=== PATIENT | male | born 2000 | race Caucasian/White ===

== ENCOUNTER 2022-03-22 21:49 | Emergency (ER) | payer BC ==
[2022-03-22 21:56] VITALS: TEMP 99.5
[2022-03-22] MEDS ORDERED: SODIUM CHLORIDE 0.9% 1,000 ML IV STA (22:07)
[2022-03-22] MEDS ORDERED: MORPHINE SULFATE 4 MG/ML SYRINGE IV STA (22:07)
[2022-03-22] MEDS ORDERED: ONDANSETRON 4 MG/2 ML VIAL IVP STA (22:07)
--- NOTE | 2022-03-22 22:28 | ED ---
Abdominal Pain HPI - General Chief Complaint: Abdominal Pain Stated Complaint: Extreme abdominal pain Time Seen by Provider: 03/22/22 22:06 Source: patient, family, RN notes reviewed, old records reviewed Mode of arrival: ambulatory Limitations: no limitations - History of Present Illness Initial Comments: This is a 22-year-old male to the emergency department for evaluation patient coming in for severe no abdominal pain left-sided jaw pain left upper quadrant bowel pain back pain. The symptoms of been episodic for a few weeks. Patient denies any significant trauma no fevers did have a headache about 2 weeks ago with at all symptoms resolved. Patient is no medical history takes no medications no surgical history. Normal bowel movements and patient has a good appetite. Patient does admit to working out more than normal lately MD Complaint: abdominal pain Location: diffuse, epigastric, suprapubic Radiation: epigastric, suprapubic Migration to: epigastric, suprapubic Severity: moderate Severity scale (1-10): 4 Quality: stabbing, aching Consistency: constant Improves With: nothing Worsens With: nothing Context: recent injury (possible with trip to [place]) Associated Symptoms: nausea Treatments Prior to Arrival: NSAIDs, antacids, other - Related Data Home Medications Medication Instructions Recorded Confirmed Pantoprazole Sodium 40 mg PO DAILY 03/22/22 03/22/22 Allergies Allergy/AdvReac Type Severity Reaction Status Date / Time No Known Allergies Allergy Verified 03/22/22 23:30 Review of Systems ROS Statement: Those systems with pertinent positive or pertinent negative responses have been documented in the HPI. ROS Other: All systems not noted in ROS Statement are negative. Past Medical History Past Medical History: No Reported History History of Any Multi-Drug Resistant Organisms: None Reported Past Surgical History: No Surgical Hx Reported Past Psychological History: No Psychological Hx Reported Smoking Status: Never smoker Past Alcohol Use History: None Reported Past Drug Use History: None Reported General Exam Limitations: no limitations General appearance: alert, in no apparent distress Head exam: Present: atraumatic, normocephalic, normal inspection Eye exam: Present: normal appearance, PERRL, EOMI. Absent: scleral icterus, conjunctival injection, periorbital swelling ENT exam: Present: normal exam, mucous membranes moist Neck exam: Present: normal inspection. Absent: tenderness, meningismus, lymphadenopathy Respiratory exam: Present: normal lung sounds bilaterally. Absent: respiratory distress, wheezes, rales, rhonchi, stridor Cardiovascular Exam: Present: regular rate, normal rhythm, normal heart sounds. Absent: systolic murmur, diastolic murmur, rubs, gallop, clicks GI/Abdominal exam: Present: soft, normal bowel sounds. Absent: distended, tenderness, guarding, rebound, rigid Extremities exam: Present: normal inspection, full ROM, normal capillary refill. Absent: tenderness, pedal edema, joint swelling, calf tenderness Back exam: Present: normal inspection Neurological exam: Present: alert, oriented X3, CN II-XII intact Psychiatric exam: Present: normal affect, normal mood Skin exam: Present: warm, dry, intact, normal color. Absent: rash Course Vital Signs 03/22/22 03/22/22 21:52 22:43 Temperature 99.5 F Pulse Rate 99 100 Respiratory 22 16 Rate Blood Pressure 152/100 140/85 O2 Sat by Pulse 99 97 Oximetry - Reevaluation(s) Reevaluation #1: 03/23/22 00:00 medical record is reviewed Reevaluation #2: 03/23/22 00:00 Patient is no significant acute distress or pain Reevaluation #3: 03/23/22 00:00 Patient is a former results and questions answered - Consultations Consultation #1: Spoke with Dr. Page in for evaluation, will see patient in the office Medical Decision Making - Medical Decision Making 22 male to the emergency department for evaluation she does come in the ER for evaluation of abdominal pain. Left upper quadrant pain with some back pain. Patient informed of findings on computed tomography scan here in the emergency department and states that couple weeks ago he was at [place] he did have some back pain initially. Patient is in no acute distress currently and can follow-up on outpatient basis with general surgery in the morning - Lab Data Result diagrams: 03/22/22 22:30 03/22/22 22:30 Lab Results 03/22/22 03/22/22 03/22/22 Range/Units 22:30 22:30 22:30 WBC 11.5 H (3.8-10.6) k/uL RBC 4.37 (4.30-5.90) m/uL Hgb 12.8 L (13.0-17.5) gm/dL Hct 38.5 L (39.0-53.0) % MCV 88.2 (80.0-100.0) fL MCH 29.3 (25.0-35.0) pg MCHC 33.2 (31.0-37.0) g/dL RDW 13.4 (11.5-15.5) % Plt Count 165 (150-450) k/uL MPV 8.5 Neutrophils % (Manual) 11 % Band Neuts % (Manual) 1 % Lymphocytes % (Manual) 73 % Monocytes % (Manual) 15 % Neutrophils # (Manual) 1.30 (1.3-7.7) k/uL Lymphocytes # (Manual) 8.40 H (1.0-4.8) k/uL Monocytes # (Manual) 1.73 H (0-1.0) k/uL Nucleated RBCs 0 (0-0) /100 WBC Manual Slide Review Performed Reactive Lymphocytes Present RBC Morphology Normal PT 11.6 (9.0-12.0) sec INR 1.1 (<1.2) APTT 30.0 (22.0-30.0) sec Sodium 135 L (137-145) mmol/L Potassium 3.8 (3.5-5.1) mmol/L Chloride 102 (98-107) mmol/L Carbon Dioxide 26 (22-30) mmol/L Anion Gap 7 mmol/L BUN 10 (9-20) mg/dL Creatinine 0.80 (0.66-1.25) mg/dL Est GFR (CKD-EPI)AfAm >90 (>60 ml/min/1.73 sqM) Est GFR (CKD-EPI)NonAf >90 (>60 ml/min/1.73 sqM) Glucose 115 H (74-99) mg/dL Plasma Lactic Acid Micheal (0.7-2.0) mmol/L Calcium 8.5 (8.4-10.2) mg/dL Total Bilirubin 0.5 (0.2-1.3) mg/dL AST 126 H (17-59) U/L ALT 161 H (4-49) U/L Alkaline Phosphatase 109 (38-126) U/L Total Protein 7.2 (6.3-8.2) g/dL Albumin 4.2 (3.5-5.0) g/dL Amylase 48 (30-110) U/L Lipase 57 (23-300) U/L 03/22/22 Range/Units 22:30 WBC (3.8-10.6) k/uL RBC (4.30-5.90) m/uL Hgb (13.0-17.5) gm/dL Hct (39.0-53.0) % MCV (80.0-100.0) fL MCH (25.0-35.0) pg MCHC (31.0-37.0) g/dL RDW (11.5-15.5) % Plt Count (150-450) k/uL MPV Neutrophils % (Manual) % Band Neuts % (Manual) % Lymphocytes % (Manual) % Monocytes % (Manual) % Neutrophils # (Manual) (1.3-7.7) k/uL Lymphocytes # (Manual) (1.0-4.8) k/uL Monocytes # (Manual) (0-1.0) k/uL Nucleated RBCs (0-0) /100 WBC Manual Slide Review Reactive Lymphocytes RBC Morphology PT (9.0-12.0) sec INR (<1.2) APTT (22.0-30.0) sec Sodium (137-145) mmol/L Potassium (3.5-5.1) mmol/L Chloride (98-107) mmol/L Carbon Dioxide (22-30) mmol/L Anion Gap mmol/L BUN (9-20) mg/dL Creatinine (0.66-1.25) mg/dL Est GFR (CKD-EPI)AfAm (>60 ml/min/1.73 sqM) Est GFR (CKD-EPI)NonAf (>60 ml/min/1.73 sqM) Glucose (74-99) mg/dL Plasma Lactic Acid Micheal 1.3 (0.7-2.0) mmol/L Calcium (8.4-10.2) mg/dL Total Bilirubin (0.2-1.3) mg/dL AST (17-59) U/L ALT (4-49) U/L Alkaline Phosphatase (38-126) U/L Total Protein (6.3-8.2) g/dL Albumin (3.5-5.0) g/dL Amylase (30-110) U/L Lipase (23-300) U/L - Radiology Data Radiology results: report reviewed (CT abd pain shows positive splenic infarct), image reviewed Disposition Clinical Impression: Abdominal pain, Splenic infarct Disposition: HOME SELF-CARE Condition: Good Instructions (If sedation given, give patient instructions): Splenic Infarction (ED) Is patient prescribed a controlled substance at d/c from ED?: No Referrals: Fred Dean MD [Primary Care Provider] - 1-2 days Michael Page MD [STAFF PHYSICIAN] - 1-2 days Time of Disposition: 00:05
[2022-03-22 22:36] LABS: HCT 38.5 % (39.0-53.0); HGB 12.8 gm/dL (13.0-17.5); MCH 29.3 pg (25.0-35.0); MCHC 33.2 g/dL (31.0-37.0); MCV 88.2 fL (80.0-100.0); Mean Platelet Volume 8.5; Platelet Count 165 k/uL (150-450); RBC 4.37 m/uL (4.30-5.90); RDW 13.4 % (11.5-15.5); WBC 11.5 k/uL (3.8-10.6)
[2022-03-22 22:44] VITALS: RESP 16
[2022-03-22 22:44] LABS: INR 1.1 (<1.2); Prothrombin Time 11.6 sec (9.0-12.0)
[2022-03-22 22:49] LABS: ALT 161 U/L (4-49); AST 126 U/L (17-59); African American GFR (CKD) >90 (>60 ml/min/1.73 sqM); Albumin 4.2 g/dL (3.5-5.0); Alkaline Phosphatase 109 U/L (38-126); Amylase 48 U/L (30-110); Anion Gap 7 mmol/L; Blood Urea Nitrogen 10 mg/dL (9-20); Calcium 8.5 mg/dL (8.4-10.2); Carbon Dioxide 26 mmol/L (22-30); Chloride 102 mmol/L (98-107); Glucose 115 mg/dL (74-99); Lipase 57 U/L (23-300); Non-African American GFR(CKD) >90 (>60 ml/min/1.73 sqM); Potassium 3.8 mmol/L (3.5-5.1); Sodium 135 mmol/L (137-145); Total Bilirubin 0.5 mg/dL (0.2-1.3); Total Protein 7.2 g/dL (6.3-8.2)
[2022-03-22 23:15] LABS: Band Neutrophils % 1 %; Monocytes # (M) 1.73 k/uL (0-1.0); Neutrophils % (M) 11 %; Nucleated Red Blood Cells 0 /100 WBC (0-0); Total Cells Counted 100
[2022-03-22 23:20] LABS: Reactive Lymphocytes Present
[2022-03-22 23:21] LABS: RBC Morphology Normal
--- NOTE | 2022-03-22 23:50 | CT ---
EXAMINATION TYPE: CT abdomen pelvis w con DATE OF EXAM: 03/22/2022 COMPARISON: None HISTORY: Diffuse abd pain. no prior. CT DLP: 1267.7 mGycm Automated exposure control for dose reduction was used. CONTRAST: Performed with IV Contrast, patient injected with 100 mL of Isovue 300. The lung bases are clear. No pleural effusion. Heart size is normal. No pericardial effusion. Liver i s intact. Spleen is large and measures 18 cm. There is some linear defects in the periphery of the sp lenic could relate to infarcts. No fluid. There is no pancreatic mass. Stomach is intact. The bile du cts are not dilated. Gallbladder is contracted. There is no adrenal mass. Kidneys show satisfactory contrast opacification. There is no hydronephrosi s. There is no retroperitoneal adenopathy. The bladder distends smoothly. No inguinal hernia. No free fluid in the pelvis. No pelvic mass. The appendix is posterior and appears normal. There is no mesenteric edema. There is no ascites or free air. No bowel obstruction. The lumbar vertebra appear intact. No compression fracture. Posterior elements are intact. Hip joints are intact. Sacroiliac joints appear normal. IMPRESSION: There is moderate splenomegaly. 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 Lacerations not excluded. No evidence of intraperitoneal hemorrhage.
[2022-03-23 00:21] VITALS: BP 143/72; PULSE 97
== END 2022-03-23 00:21 | disposition home or self-care (01) ==
LOC: EC 21:49
DX: D73.5 Infarction of spleen (principal)
CPT/HCPCS: 99284; 36415; 80053; 82150; 83605; 83690; 85025; 85610; 85730; 74177; 96360; Q9967; 86308

== ENCOUNTER → 2022-04-13 | Outpatient (CLI) | payer BC ==
--- NOTE | 2022-04-13 22:21 | CT ---
EXAMINATION TYPE: CT abdomen w con CT DLP: 742.5 mGycm, Automated exposure control for dose reduction was used. 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 Sagittal [facility] Contrast used:100 mL of Isovue 300 with IV Contrast, Oral contrast used: with Oral Contrast FINDINGS: LOWER CHEST: Unremarkable ABDOMEN LIVER: Unremarkable GALLBLADDER AND BILE DUCTS: Unremarkable. PANCREAS: Unremarkable. SPLEEN: Redemonstration of what peripheral wedge-shaped areas within the spleen the largest appears s maller than prior with additional more lateral area which appear stable. The spleen has decreased in size now measuring up to 15.0 cm previously 18.4 cm. ADRENAL GLANDS: Unremarkable. KIDNEYS AND URETERS: No evidence of hydronephrosis or renal calculus. The ureters are unremarkable. PELVIS BLADDER: Unremarkable REPRODUCTIVE: Unremarkable. ABDOMEN & PELVIS STOMACH AND BOWEL: No evidence of bowel obstruction. PERITONEUM: No evidence of pneumoperitoneum or free fluid. VASCULATURE: No evidence of aortic aneurysm. The splenic vein is patent. Splenic artery is patent. MUSCULOSKELETAL: No acute osseous abnormalities LYMPH NODES: No gross evidence for lymphadenopathy. SOFT TISSUE/ABDOMINAL WALL: Unremarkable IMPRESSION: Peripheral Wedge-shaped areas within the spleen suspicious for splenic infarcts. Overall these appear smaller on today's exam with a decrease in the size of the spleen compared to 03/22/2022.
== END | disposition home or self-care (01) ==
LOC: RADCTMAIN 15:57
PROVIDERS: ATTEND Surgery
DX: D73.5 Infarction of spleen (principal)
CPT/HCPCS: 74160; Q9967 ×2